=== PATIENT | male | born 1975 | race Caucasian/White ===

== ENCOUNTER → 2024-09-10 13:38 | Outpatient (REF) | payer BC, SELFPAY | LOC: RAD 13:38 | PROVIDERS: ATTENDING PHYSICIAN Nurse Practitioner Family; FAMILY PHYSICIAN Internal Medicine | DX: M25.561 Pain in right knee (principal); M25.461 Effusion, right knee | CPT/HCPCS: 73564 ==

== ENCOUNTER → 2024-11-26 13:51 | Outpatient (REF) | payer BC, SELFPAY | LOC: DHSLP 13:51 | PROVIDERS: ATTENDING PHYSICIAN Nurse Practitioner Family | DX: G47.30 Sleep apnea, unspecified (principal); R06.83 Snoring | CPT/HCPCS: 95800 ==